=== PATIENT | male | born 1990 | race African-American/Black ===

== ENCOUNTER 2017-12-08 | Emergency (ER) | payer OTHER ==
[~2017-12-08] VITALS: Ht 180.3 cm; Wt 105.1 kg
[~2017-12-08] MED LIST: CYCL-36 PO; HYDR-3533 PO
[2017-12-08 00:04] VITALS: BP 149/83; PULSE 63; RESP 18; TEMP 98; O2SAT 100
== END 2017-12-08 01:32 | disposition left against medical advice (07) ==
LOC: PHED
DX: K13.0 Diseases of lips (principal)
CPT/HCPCS: 99281